=== PATIENT | male | born 1980 | race African-American/Black ===

== ENCOUNTER 2019-04-07 21:33 | Emergency (ER) | payer MEDICAID ==
[2019-04-07] MEDS ORDERED: NAPROXEN 500 MG TAB PO ONE (22:38)
[2019-04-07] MEDS ORDERED: AUGMENTIN(FRIDGE) 400 MG/5 ML PO ONE (22:38)
[2019-04-07] MEDS ORDERED: NAPROXEN 500 MG TAB ONE (22:44)
[2019-04-07] MEDS ORDERED: AMOXIL/CLAVULANATE 400/5 ML PDR ONE (22:44)
[2019-04-07 23:17] VITALS: TEMP 98.4
[2019-04-08 00:52] VITALS: BP 111/63; PULSE 80; RESP 16; O2SAT 99
== END 2019-04-08 00:45 | disposition home or self-care (01) | DRG 950 ==
LOC: ED 21:33
DX: S69.81XD Other specified injuries of right wrist, hand and finger(s), subsequent encounter (principal)
CPT/HCPCS: 99283; A9270-GY

== ENCOUNTER 2019-04-08 18:22 | Emergency (ER) | payer MEDICAID ==
[2019-04-08 18:47] VITALS: BP 148/79; PULSE 78; RESP 16; TEMP 98.5; O2SAT 100
[2019-04-08] MEDS ORDERED: ACETAMINOPHEN 500 MG 500 MG TAB PO ONE (20:22)
[2019-04-08] MEDS ORDERED: ACETAMINOPHEN 500 MG 500 MG TAB ONE (20:24)
== END 2019-04-08 20:38 | disposition home or self-care (01) | DRG 561 ==
LOC: ED 18:22
DX: S62.336D Displaced fracture of neck of fifth metacarpal bone, right hand, subsequent encounter for fracture with routine healing (principal)
CPT/HCPCS: 99282

== ENCOUNTER 2019-04-11 08:16 | Emergency (ER) | payer MEDICAID ==
[2019-04-11] MEDS ORDERED: IBUPROFEN 400 MG TAB PO ONE (08:34)
[2019-04-11] MEDS ORDERED: IBUPROFEN 400 MG TAB ONE (08:35)
[2019-04-11 08:54] VITALS: RESP 20; TEMP 98.1
[2019-04-11 09:53] VITALS: BP 141/80; PULSE 82; O2SAT 99
== END 2019-04-11 09:15 | disposition home or self-care (01) | DRG 561 ==
LOC: ED 08:16
DX: S62.326G Displaced fracture of shaft of fifth metacarpal bone, right hand, subsequent encounter for fracture with delayed healing (principal); W23.0XXD Caught, crushed, jammed, or pinched between moving objects, subsequent encounter
CPT/HCPCS: 73130; 99282; 99283; A9270-GY